=== PATIENT | male | born 1960 | race Caucasian/White ===

== ENCOUNTER → 2019-07-28 | Outpatient (CLI) | payer OTHER ==
[2019-07-28 16:43] LABS: African American GFR (CKD) 97.1 (60.0-200.0); Anion Gap 7.3 mmol/L (4.00-12.00); Calcium 9.5 mg/dL (8.7-10.3); Carbon Dioxide 28.7 mmol/L (21.6-31.8); Chol/HDL Ratio 3.18; LDL Cholesterol,Calculated 81.6 mg/dL (0.0-131.0); Non-African American GFR(CKD) 83.8 (60.0-200.0); Potassium 4.1 mmol/L (3.5-5.5); VLDL Calculation 29.4 mg/dL (5.00-40.00)
== END | disposition home or self-care (01) ==
LOC: LABWHC1 08:19
PROVIDERS: ATTEND Internal Medicine
DX: I10 Essential (primary) hypertension (principal); E78.5 Hyperlipidemia, unspecified
CPT/HCPCS: 36415; 80048; 80061

== ENCOUNTER → 2024-12-18 | Outpatient (CLI) | payer MEDICARE, OTHER ==
--- NOTE | 2024-12-18 15:03 | US ---
EXAMINATION TYPE: US arterial LE single level DATE OF EXAM: 12/18/2024 2:54 PM COMPARISONS: None. CLINICAL INDICATION: Male, 64 years old with history of R20.9 UNSPECIFIED DISTURBANCES OF SKIN SENSAT ION; Cold feet, right worse than left TECHNIQUE: Systolic pressures were taken of the upper and lower extremity arteries with ankle-brachia l indices and toe brachial indices calculated bilaterally. History of: Smoker: No Hypertension: Yes Diabetic: No Hyperlipidemia: No TIA/CVA: No Previous Vascular Surgery: No CAD: No RI: No Vascular Ulcers: No Claudication: No Gangrene: No FINDINGS: Doppler Waveforms: Right: Multiphasic Left: Multiphasic Pulse Volume Recording: Pressure Gradients: Brachial Artery systolic pressure: Right: 152 Left: 158 Posterior Tibial artery systolic pressure: Right: 179 Left: 176 Dorsalis Pedis artery systolic pressure: Right: 165 Left: 174 Toe artery systolic pressure: Right: NA Left: NA Ankle-Brachial Indices: Right: 1.13 Left: 1.11 Toe Brachial Indices: Right: 1.04 Left: 1.10 (Normal > 0.6; Mild 0.35 - 0.59, Moderate 0.12 - 0.34, Severe <0.12) IMPRESSION: 1 no suspicious changes to suggest stenosis [facility], , 12/18/2024 3:01 PM
== END | disposition home or self-care (01) ==
LOC: RADUSWWP 14:24
PROVIDERS: ATTEND Family Medicine
DX: R20.8 Other disturbances of skin sensation (principal)
CPT/HCPCS: 93922